=== PATIENT | female | born 1930 | race Caucasian/White ===

== ENCOUNTER 2018-10-05 15:34 | Emergency (ER) | payer MEDICARE ==
[2018-10-05] MEDS ORDERED: Ondansetron INJ* 2 MG/ML VIAL IV ONE (15:44)
[2018-10-05] MEDS ORDERED: NS 0.9% 1000 ML** 1,000 ML IV ONE (15:44)
[2018-10-05 16:16] LABS: ABS Eosinophils 0.1 10^3/ul (0-0.6); ABS Lymphocytes 1.3 10^3/ul (1.0-4.8); ABS Monocytes 0.5 10^3/ul (0-0.8); ABS Neutrophils 13.7 10^3/ul (1.5-7.7); Eosinophil % 0.4 %; Hematocrit 38 % (35-47); Hemoglobin 12.9 g/dL (12.0-16.0); Lymphocyte % 8.1 %; Mean Corpuscular HGB Conc 34 g/dL (31-36); Mean Corpuscular Hemoglobin 29 pg (27-31); Mean Corpuscular Volume 87 fL (80-97); Mean Platelet Volume 8.2 fL (7.4-10.4); Nucleated Red Blood Cells % 0.1; Platelet Count 233 10^3/uL (150-450); Red Blood Count 4.43 10^6 /uL (3.70-4.87); Red Cell Distribution Width 14 % (10-15); White Blood Count 15.5 10^3/uL (3.5-10.8)
[2018-10-05] MEDS ORDERED: Morphine 4 MG/ML VIAL (1 ml) 4 MG/ML VIAL IV ONE ×2 (16:26→17:10)
[2018-10-05 16:33] LABS: C Reactive Protein 8.22 mg/L (<8.01)
[2018-10-05 18:09] LABS: Albumin 3.7 g/dL (3.2-5.2); Calcium 8.9 mg/dL (8.6-10.3); Potassium 3.7 mmol/L (3.5-5.0); Total Bilirubin 0.8 mg/dL (0.2-1.0)
[2018-10-05 18:15] LABS: Albumin/Globulin Ratio 1.7 (1-3); EGFR African American 72.4 (>60); EGFR Non-African American 59.9 (>60); Globulin 2.2 g/dL (2-4); Total Protein 5.9 g/dL (6.4-8.9)
--- NOTE | 2018-10-05 18:53 | ED ---
Progress - Progress Note Progress Note: patient was signed out from [facility] pending ultrasound and lab work. ultrasound shows: The gallbladder wall is thickened measuring up to 1 cm in thickness. There is pericholecystic fluid. In the lumen of the gallbladder there is at least one echogenic stone measuring 2.2 cm in greatest dimension. The common bile duct measures 6 mm in diameter. Re-Evaluation - Re-Evaluation First Eval Re-Evaluation Time: 20:00 Change: Improved - feeling improved after morphine given Comment: pain better Second Eval Re-Evaluation Time: 21:01 Change: Improved Comment: pain better, gave labatelol and blood pressure 156/70 Course/Dx - Course Course Of Treatment: 88-year-old female presents with acute onset of nausea vomiting and periumbilical pain today. States it started after she ate some potato salad. She denies any fevers. Denies any diarrhea or constipation. No urinary symptoms. Never had this pain before. States pain does radiate to right shoulder. Denies any chest pain or shortness of breath. 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 On exam tenderness in the right upper quadrant. Patient required multiple rounds of morphine and was required oxygen due to destating after morphine. blood pressure is also elevated. patient was intially CT which shows inflammatory change surrouding gallbladder, duodenum and head of pancreasis. wbc 15. AST 72, ALT 58. amylase 795, lipase 3511. gallbladder u/s shows cholecystitis. discussed with dr colon that patient will need ERCP which is unavailable at this facility. gave dose of zosyn. urine also shows potential uti which [facility] should cover for. spoke with dr maynard from GI at [facility]. spoke with dr Garcia from [facility] who accepts patient for transfer. bed will not be available till morning. offered to transfer to another hospital but patient refused. wants to go to [facility] only. - Diagnoses Provider Diagnoses: Abdominal pain, Cholecystitis, Pancreatitis, Hypertension Discharge - Sign-Out/Discharge Documenting (check all that apply): Receiving Sign-Out Receiving patient FROM: [facility] Mullins - Discharge Plan Condition: Fair Disposition: TRANS HIGHER LVL OF CARE FAC Referrals: Sapna Cavazos MD [Primary Care Provider] - - Billing Disposition and Condition Condition: FAIR Disposition: Trans Higher Lvl of Care Fac
[2018-10-05 19:09] LABS: INR 2.9 (0.82-1.09)
[2018-10-05] MEDS ORDERED: Piperacillin/Tazobac ADVAN(*) 3.375 GM in NS 0.9% 100 ML* 100 ML IVPB ONE (19:09)
[2018-10-05] MEDS ORDERED: Labetalol IV* 5 MG/ML 20 ML VIAL IV PUSH ONE (19:09)
--- NOTE | 2018-10-05 19:16 | ED ---
Abdominal Pain/Female - HPI Summary HPI Summary: Patient is an 88-year-old female presenting to the ED with acute onset of vomiting and bilateral lower abdominal pain which started immediately after lunch this afternoon. She states she awoke this morning and felt well, ate a piece of toast and denied any pain at that time. Immediately following her lunch of macaroni salad, she had intense bilateral lower quadrant pain with associated vomiting. She had 2 more episodes of vomiting in the next 2 hours and decided to call the ambulance. She denies any constipation or diarrhea and her last bowel movement was this morning and was normal in appearance. She denies any flank pain or urinary symptoms. She denies any fevers, sweats, chills. She has never had this in the past. She states she is otherwise healthy. She denies any nausea prior to her vomiting episodes. She denies headache, chest pain, shortness of breath. Symptoms are aggravated with movement and better with rest. She has not taken any medication prior to arrival. - History of Current Complaint Chief Complaint: EDAbdPain Stated Complaint: NAUSEA/VOMITING PER EMS Time Seen by Provider: 10/05/18 15:43 Hx Obtained From: Patient ?: No Onset/Duration: Sudden Onset Timing: Constant Severity Initially: Severe Severity Currently: Severe Pain Intensity: 6 Pain Scale Used: 0-10 Numeric Location: Discrete At: RLQ, Discrete At: LLQ Character: Dull Aggravating Factor(s): Nothing Associated Signs and Symptoms: Positive: Nausea, Vomiting - Risk Factors Ectopic Risk Factor: Negative Ovarian Torsion Risk Factor: Negative Allergies/Adverse Reactions: Allergies Allergy/AdvReac Type Severity Reaction Status Date / Time No Known Allergies Allergy Verified 08/23/17 13:26 Home Medications: Home Medications Warfarin Sodium 4 mg PO SEE INSTRUCTIONS 10/05/18 [History Confirmed 10/05/18] PMH/Surg Hx/FS Hx/Imm Hx Previously Healthy: Yes Endocrine/Hematology History: Reports: Hx Anticoagulant Therapy - Coumadin for DVT Denies: Hx Diabetes Comment Only: 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 UTI's Denies: Hx Renal Disease Musculoskeletal History: Reports: Hx Arthritis, Hx Back Problems, Hx Osteoporosis, Other Musculoskeletal History - osteo-arthritis R hip/ spine , herniated discs Sensory History: Reports: Hx Contacts or Glasses, Hx Hearing Aid - R EAR Opthamlomology History: Reports: Hx Contacts or Glasses Neurological History: Denies: Hx Headaches, Hx Migraine, Hx Transient Ischemic Attacks (TIA), Other Neuro Impairments/Disorders Psychiatric History: Denies: Hx Panic Disorder - Surgical History Surgery Procedure, Year, and Place: EAR SURGERY FOR HEARING REPAIR([facility] [address] DAVIS FOR 1.5T ONLY) Infectious Disease History: No Infectious Disease History: Denies: Traveled Outside the [place] in Last 30 Days - Social History Occupation: Unemployed Lives: Alone Alcohol Use: None Hx Substance Use: No Substance Use Type: Reports: None Hx Tobacco Use: No Smoking Status (MU): Never Smoked Tobacco Review of Systems Constitutional: Negative Negative: Fever, Fatigue, Skin Diaphoresis Negative: Chest Pain Negative: Shortness Of Breath, Cough Positive: Abdominal Pain, Vomiting. Negative: Diarrhea, Nausea Genitourinary: Negative Positive: no symptoms reported, see HPI Negative: Arthralgia, Myalgia Positive: Bruising Neurological: Negative All Other Systems Reviewed And Are Negative: Yes Physical Exam Triage Information Reviewed: Yes Vital Signs On Initial Exam: Initial Vitals BP 185/70 10/05/18 15:49 Vital Signs Reviewed: Yes Appearance: Positive: Ill-Appearing Skin: Positive: Warm, Skin Color Reflects Adequate Perfusion Head/Face: Positive: Normal Head/Face Inspection Eyes: Positive: EOMI, VARUN, Conjunctiva Clear Neck: Positive: Supple, No Lymphadenopathy Respiratory/Lung Sounds: Positive: Clear to Auscultation, Breath Sounds Present Cardiovascular: Positive: RRR, Pulses are Symmetrical in both Upper and Lower Extremities. Negative: Bradycardia, IRR, Leg Edema Left, Leg Edema Right Abdomen Description: Positive: Other: - tenderness to the bilateral lower quadrants; negative vazquez's, No CVA tenderness bilaterally. Negative: CVA Tenderness (R), CVA Tenderness (L), Distended, Guarding Musculoskeletal: Positive: Normal, Strength/ROM Intact Neurological: Positive: Sensory/Motor Intact, Alert, Oriented to Person Place, Time, Speech Normal Psychiatric: Positive: Normal, Affect/Mood Appropriate AVPU Assessment: Alert Diagnostics - Vital Signs Vital Signs Temp Pulse Resp BP Pulse Ox 10/05/18 19:00 70 13 97 10/05/18 18:49 59 13 193/79 99 10/05/18 18:18 63 20 188/77 88 10/05/18 18:00 69 20 93 10/05/18 17:49 61 8 176/71 91 10/05/18 17:33 16 10/05/18 17:19 57 16 187/74 92 10/05/18 17:00 60 15 93 10/05/18 16:52 19 10/05/18 16:49 60 21 186/58 94 10/05/18 16:19 71 19 177/62 96 10/05/18 16:00 19 10/05/18 15:53 170 89 10/05/18 15:51 97.5 F 64 14 185/70 98 10/05/18 15:49 185/70 - Laboratory Lab Results: Lab Results 10/05/18 10/05/18 10/05/18 Range/Units 16:08 16:08 16:08 WBC 15.5 H (3.5-10.8) 10^3/uL RBC 4.43 (3.70-4.87) 10^6 /uL Hgb 12.9 (12.0-16.0) g/dL Hct 38 (35-47) % MCV 87 (80-97) fL MCH 29 (27-31) pg MCHC 34 (31-36) g/dL RDW 14 (10-15) % Plt Count 233 (150-450) 10^3/uL MPV 8.2 (7.4-10.4) fL Neut % (Auto) 88.0 % Lymph % (Auto) 8.1 % Williamson % (Auto) 3.2 % Eos % (Auto) 0.4 % Baso % (Auto) 0.3 % Absolute Neuts (auto) 13.7 H (1.5-7.7) 10^3/ul Absolute Lymphs (auto) 1.3 (1.0-4.8) 10^3/ul Absolute Monos (auto) 0.5 (0-0.8) 10^3/ul Absolute Eos (auto) 0.1 (0-0.6) 10^3/ul Absolute Basos (auto) 0.0 (0-0.2) 10^3/ul Absolute Nucleated RBC 0.0 10^3/ul Nucleated RBC % 0.1 INR (Anticoag Therapy) (0.82-1.09) Sodium 142 (135-145) mmol/L Potassium 3.7 (3.5-5.0) mmol/L Chloride 107 (101-111) mmol/L Carbon Dioxide 27 (22-32) mmol/L Anion Gap 8 (2-11) mmol/L BUN 24 (6-24) mg/dL Creatinine 0.89 (0.51-0.95) mg/dL Est GFR ( Amer) 72.4 (>60) Est GFR (Non-Af Amer) 59.9 (>60) BUN/Creatinine Ratio 27.0 H (8-20) Glucose 180 H (70-100) mg/dL Lactic Acid 1.6 (0.5-2.0) mmol/L Calcium 8.9 (8.6-10.3) mg/dL Total Bilirubin 0.80 (0.2-1.0) mg/dL AST 72 H (13-39) U/L ALT 58 H (7-52) U/L Alkaline Phosphatase 106 H (34-104) U/L C-Reactive Protein 8.22 H (<8.01) mg/L Total Protein 5.9 L (6.4-8.9) g/dL Albumin 3.7 (3.2-5.2) g/dL Globulin 2.2 (2-4) g/dL Albumin/Globulin Ratio 1.7 (1-3) Amylase 795 H (29-103) U/L Lipase 3511 H (11.0-82.0) U/L 10/05/18 Range/Units 16:08 WBC (3.5-10.8) 10^3/uL RBC (3.70-4.87) 10^6 /uL Hgb (12.0-16.0) g/dL Hct (35-47) % MCV (80-97) fL MCH (27-31) pg MCHC (31-36) g/dL RDW (10-15) % Plt Count (150-450) 10^3/uL MPV (7.4-10.4) fL Neut % (Auto) % Lymph % (Auto) % Williamson % (Auto) % Eos % (Auto) % Baso % (Auto) % Absolute Neuts (auto) (1.5-7.7) 10^3/ul Absolute Lymphs (auto) (1.0-4.8) 10^3/ul Absolute Monos (auto) (0-0.8) 10^3/ul Absolute Eos (auto) (0-0.6) 10^3/ul Absolute Basos (auto) (0-0.2) 10^3/ul Absolute Nucleated RBC 10^3/ul Nucleated RBC % INR (Anticoag Therapy) 2.90 H (0.82-1.09) Sodium (135-145) mmol/L Potassium (3.5-5.0) mmol/L Chloride (101-111) mmol/L Carbon Dioxide (22-32) mmol/L Anion Gap (2-11) mmol/L BUN (6-24) mg/dL Creatinine (0.51-0.95) mg/dL Est GFR ( Amer) (>60) Est GFR (Non-Af Amer) (>60) BUN/Creatinine Ratio (8-20) Glucose (70-100) mg/dL Lactic Acid (0.5-2.0) mmol/L Calcium (8.6-10.3) mg/dL Total Bilirubin (0.2-1.0) mg/dL AST (13-39) U/L ALT (7-52) U/L Alkaline Phosphatase (34-104) U/L C-Reactive Protein (<8.01) mg/L Total Protein (6.4-8.9) g/dL Albumin (3.2-5.2) g/dL Globulin (2-4) g/dL Albumin/Globulin Ratio (1-3) Amylase (29-103) U/L Lipase (11.0-82.0) U/L Result Diagrams: 10/05/18 16:08 10/05/18 16:08 Lab Statement: Any lab studies that have been ordered have been reviewed, and results considered in the medical decision making process. Re-Evaluation - Re-Evaluation First Eval Change: Improved - feeling improved after morphine given Abdominal Pain Fem Course/Dx - Course Course Of Treatment: On arrival in the ED, the patient appears ill, stating she is having bilateral lower quadrant pain acute onset immediately following lunch today. She states she has had 3 episodes of vomiting, but no nausea. Denies any constipation or diarrhea. Physical examination, lungs CTA, RRR, patient is nontoxic in appearing and nondiaphoretic. Negative vazquez's. Palpation to the bilateral lower quadrants are positive for pain on moderate to deep palpation. Bowel sounds decreased throughout. Labs obtained which showed elevated white count and elevated CRP. She is given 8 mg Zofran in the ambulance prior to arrival and denies any vomiting since that time. She continues to endorse bilateral lower quadrant pain. She is given 6 mg total morphine in the ED with good improvement. CT abdomen/pelvis obtained which shows inflammatory changes to the gallbladder, possibly representing a cholecystitis or pancreatitis. At this time a gallbladder ultrasound was ordered as well as an amylase and lipase to assess for cholecystitis versus pancreatitis. Discussed with patient pain control and she declines any more pain medication at this time. She continues to deny any nausea or further vomiting. Vital signs are stable. She is signed out to [facility] pending gallbladder US results. - Diagnoses Differential Diagnosis: Positive: Appendicitis, Bowel Obstruction, Diverticulitis, Gall Bladder Disease, Pancreatitis, Renal Colic, Urinary Tract Infection Provider Diagnoses: Abdominal pain Discharge - Sign-Out/Discharge Documenting (check all that apply): Sign-Out Patient Signing out patient TO: Cheri Fierro - Discharge Plan Condition: Fair Referrals: Sapna Cavazos MD [Primary Care Provider] - - Billing Disposition and Condition Condition: FAIR
[2018-10-05 20:07] LABS: Urine Appearance Clear; Urine Bacteria 1+ (Absent); Urine Bilirubin Negative (Negative); Urine Blood 1+ (Negative); Urine Color Yellow; Urine Glucose Negative (Negative); Urine Ketones Trace (Negative); Urine Nitrite Negative (Negative); Urine Protein Negative (Negative); Urine Red Blood Cell 2+(6-10/hpf) (Absent); Urine Specific Gravity 1.012 (1.010-1.030); Urine Squamous Epithelial Cell Present (Absent); Urine Urobilinogen Negative (Negative); Urine White Blood Cell 3+(>20/hpf) (Absent)
[2018-10-05] MEDS ORDERED: Morphine 4 MG/ML VIAL (1 ml) 4 MG/ML VIAL IV PRN (21:01)
[2018-10-05] MEDS ORDERED: Ondansetron INJ* 2 MG/ML VIAL IV PRN (21:04)
[2018-10-05 23:03] VITALS: BP 183/66
== END 2018-10-05 23:03 | disposition short-term general hospital (02) ==
LOC: ED 15:34
DX: R10.9 Unspecified abdominal pain (principal); K81.9 Cholecystitis, unspecified; K85.90 Acute pancreatitis without necrosis or infection, unspecified; I10 Essential (primary) hypertension; Z79.01 Long term (current) use of anticoagulants; Z86.718 Personal history of other venous thrombosis and embolism; Z86.711 Personal history of pulmonary embolism
CPT/HCPCS: 36415; 74176; 76705; 80053; 81003; 81015; 82150; 83605; 83690; 85025; 85610; 86140; 87086; 93005; 96361; 96365; 96375; 99285; J2270; J2543